=== PATIENT | male | born 1975 | race Caucasian/White ===

== ENCOUNTER 2023-01-20 17:29 | Emergency (ER) | payer OTHER ==
[~2023-01-20] VITALS: Ht 182.9 cm; Wt 94.0 kg
[2023-01-20] MEDS ORDERED: IBUPROFEN 600 MG TAB PO ONE (18:15)
[2023-01-20] MEDS ORDERED: HYDROcodone-ACET 10/325MG TAB PO ONE (18:30)
[2023-01-20] MEDS ORDERED: DOCUSATE SOD 100 MG CAP PO ONE (18:30)
[2023-01-20] MEDS ORDERED: MORPHINE SULFATE INJ 2 MG/ml SYRG IM ONE (20:15)
[2023-01-20 22:11] VITALS: BP 117/69; PULSE 71; RESP 18; TEMP 98.3; O2SAT 94
== END 2023-01-20 22:11 | disposition short-term general hospital (02) ==
LOC: ER 17:29 → EDBD 17:29 → ER 22:11
DX: S82.141A Displaced bicondylar fracture of right tibia, initial encounter for closed fracture (principal); S82.491A Other fracture of shaft of right fibula, initial encounter for closed fracture; V87.8XXA Person injured in other specified noncollision transport accidents involving motor vehicle (traffic), initial encounter; Y93.55 Activity, bike riding; Y92.89 Other specified places as the place of occurrence of the external cause; Y99.8 Other external cause status
CPT/HCPCS: 29505; 73502; 73562; 73610; 99285; J2270